=== PATIENT | female | born 1960 | race Caucasian/White ===

== ENCOUNTER 2023-09-24 08:19 | Day surgery (SDC) | payer BC ==
[2023-09-24] MEDS ORDERED: Depo-Medrol 40 MG/ML IM ONE (08:20)
[2023-09-24] MEDS ORDERED: BUPIVACAINE 0.5% VIAL IJ ONE (08:20)
[2023-09-24] MEDS ORDERED: Sodium Chloride 0.9(Preservative Free) 10 ML IJ ONE (08:20)
[2023-09-24] MEDS ORDERED: Lactated Ringers 1,000 ML IV ONE (09:16)
[2023-09-24] MEDS ORDERED: DIPRIVAN 200 MG/20 ML IV ONE ×2 (09:41→09:54)
--- NOTE | 2023-09-24 10:30 | XRAY ---
Indication: Lumbar SUKHJINDER. Intraoperative fluoroscopy provided for 24 seconds. 2 digital spot image submitted for interpretation demonstrates needle tip projecting posterior to lumbosacral junction interspace. Small amount of contrast injected for needle placement. Correlate with intraoperative findings/report.
--- NOTE | 2023-09-24 12:06 | XRAY ---
24 seconds of fluoroscopy was used in surgery for a lumbar SUKHJINDER.
== END 2023-09-24 10:30 | disposition home or self-care (01) ==
LOC: SDC-PAIN 08:19
PROVIDERS: ATTEND Psychiatry & Neurology Pain Medicine
DX: M54.16 Radiculopathy, lumbar region (principal); E11.9 Type 2 diabetes mellitus without complications
CPT/HCPCS: 62323; 72100; 77003; 82947; J1010; J2704; Q9966